=== PATIENT | male | born 1985 | race Caucasian/White ===

== ENCOUNTER 2021-06-11 15:29 | Emergency (ER) | payer MEDICARE, MEDICAID ==
[~2021-06-11] VITALS: Ht 172 cm; Wt 77.0 kg
--- NOTE | 2021-06-11 16:24 | ED GI ---
General Chief Complaint: Catheter/Drain/Tube Problems Stated Complaint: FEEDING TUBE ISSUES Nursing Triage Note: PT ARRIVES TO ER WITH C/O FEEDING TUBE BEING CRACKED FOR 3 WEEKS. PT STATES HE HAS HAD THIS TUBE FOR 5 YEARS AND HAS NEVER HAD IT REPLACED DUE TO BEING IN [place] Source of Information: Patient Exam Limitations: No Limitations History of Present Illness Date Seen by Provider: Jun 11, 2021 Time Seen by Provider: 15:45 Initial Comments This 35-year-old man presents to the emergency room accompanied by a staff member from the [facility] in [place] with concerns about his gastric feeding tube. He states it has been in place for 5 years. He states that it is cracked and was supposed to be replaced 2 years ago. He has been incarcerated and struggled with alcohol dependence and has therefore.had G-tube replaced. He is able to consume some orally but he does use the feeding tube for nutrition and hydration. Allergies and Home Medications Allergies Coded Allergies: No Known Allergies (Verified Allergy, Unknown, 06/11/21) Patient Home Medication List Home Medication List Reviewed: Yes Review of Systems Review of Systems Constitutional: no symptoms reported EENTM: No Symptoms Reported Respiratory: No Symptoms Reported Cardiovascular: No Symptoms Reported Gastrointestinal: See HPI Genitourinary: No Symptoms Reported Musculoskeletal: no symptoms reported Skin: no symptoms reported Psychiatric/Neurological: See HPI Endocrine: No Symptoms Reported Hematologic/Lymphatic: No Symptoms Reported Past Bfmhfhk-Hrqouy-Ykqnmb Hx Patient Social History Tobacco Use?: Yes Tobacco type used: Cigarettes Smoking Status: Current Everyday Smoker Substance use?: No Alcohol Use?: No (Prior heavy daily use) Pt feels they are or have been: No Immunizations Up To Date Influenza Vaccine Up-to-Date: No; Not Current Past Medical History Surgeries: Yes Abdominal (PEG tube) Respiratory: No Cardiac: No Neurological: No Genitourinary: No Gastrointestinal: Yes (Esophageal achalasia) Musculoskeletal: No Endocrine: No HEENT: No Cancer: No Psychosocial: Yes (Alcohol dependence and abuse) Physical Exam Vital Signs Vital Signs - First Documented 06/11/21 15:37 Temp 36.7 Pulse 89 Resp 18 B/P (MAP) 121/93 (102) Pulse Ox 98 Capillary Refill : Less Than 3 Seconds Height/Weight/BMI Height: '" Weight: lbs. oz. 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 Dr. Jc was consulted. He recommended firm traction on the PEG tube until the flange collapses and the PEG tube can be removed. I did apply rather firm traction until patient alerted me to notable pain. At that point Dr. Jc came to the room to assist with the removal. He was able to remove the PEG tube and insert a new 20 Polish PEG tube. Diagnostic Imaging Diagonstic Imaging: Xray Plain Films/CT/US/NM/MRI: abdomen Comments PEG tube placement x-ray reviewed by me and report reviewed. See report below: NAME: CHUCKIE KRISHNAN [facility] REC#: [id number] PT STATUS: REG ER : 1985 PHYSICIAN: HENRY ESPINAL MD ADMIT DATE: 06/11/21/ER Signed Date of Exam:06/11/21 PEG TUBE CHECK Exam: Abdominal radiographs with and without contrast. Date: June 11, 2021. Indication: 35-year-old male, PEG tube positioning evaluation. Comparison: September 27, 2017. Findings: There is contrast administration through the existing gastrostomy tube with contrast opacification of the stomach and extending into the duodenum. There is no identified abnormal extravasation of contrast. There is no identified free intraperitoneal air. There are no abnormally distended gas-filled segments of bowel. There is no identified abnormal radiodensity overlying the expected positions of the kidneys or ureters. Impression: 1. The gastrostomy tube is in the stomach. Dictated by: Dictated on workstation # [id number] Dict: 06/11/21 1756 Trans: 06/11/211805 [facility] [id number] Interpreted by: JAMES GERMAN MD Electronically signed by: JAMSE GERMAN MD 06/11/211805 Departure Impression Primary Impression: Encounter for feeding tube placement Additional Impression: Esophageal achalasia Disposition: 01 HOME, SELF-CARE Condition: Improved Departure-Patient Inst. Decision time for Depature: 18:46 Referrals: MATTHEW JC,LOCAL PHYSICIAN (PCP) Primary Care Physician Patient Instructions: How to Care for Your Gastrostomy Tube Add. Discharge Instructions: Read through the instructions provided. Call Dr. Jc if you have any problems or concerns with your G-tube. Return to the ER if you need urgent evaluation or care or if you have worsening symptoms. All discharge instructions reviewed with patient and/or family. Voiced understanding. Copy Copies To 1: MATTHEW JC JOSHUA T MD Jun 11, 2021 16:24
[2021-06-11] MEDS ORDERED: DIATRIZOATE MEGLUM/SODIUM 37% 120 ML (GASTROGRAFIN) PO ONE (17:45)
--- NOTE | 2021-06-11 18:06 | Diagnostic Imaging Report ---
Exam: Abdominal radiographs with and without contrast. Date: June 11, 2021. Indication: 35-year-old male, PEG tube positioning evaluation. Comparison: September 27, 2017. Findings: There is contrast administration through the existing gastrostomy tube with contrast opacification of the stomach and extending into the duodenum. There is no identified abnormal extravasation of contrast. There is no identified free intraperitoneal air. There are no abnormally distended gas-filled segments of bowel. There is no identified abnormal radiodensity overlying the expected positions of the kidneys or ureters. Impression: 1. The gastrostomy tube is in the stomach. Dictated by: Dictated on workstation # [id number]
[2021-06-11 18:53] VITALS: BP 121/93
--- NOTE | 2021-06-11 21:14 | Consultation - Surgery ---
History of Present Illness History of Present Illness Patient Consulted On(geronimo/time) 06/11/21 17:00 Date Seen by Provider: Jun 11, 2021 Time Seen by Provider: 17:00 History of Present Illness Consult requested by Dr. Helton for malfunction gastrostomy tube. Patient is a 35-year-old male who is in the addiction treatment center in [facility]. Patient states that he has had significant issue with alcohol use and was diagnosed with achalasia. He states that he had underwent a Heller myotomy. This was done in [place]. He states that he did not have great success with this and has even had an esophageal stent as well but patient was still unable to tolerate enough diet and hydration. He states that he had a gastrostomy tube placed 5 years ago to maintain his nutrition and hydration. Patient states that he was instructed to have his tube replaced 2 years ago but was unable to do so and not sure why it has not been done so far. The tube has been broken and it is secured to the best of his ability at this time. He continues to use it. He does not have any significant leaks from it. He is just concerned because of it being cracked and the long time without having it replaced. Patient with no abdominal pain. He has no other complaints at this time. He denies any nausea vomiting fever sweats chills shortness of breath or chest pain. Allergies and Home Medications Allergies Coded Allergies: No Known Allergies (Verified Allergy, Unknown, 06/11/21) Patient Home Medication List Home Medication List Reviewed: Yes Past Qsywwup-Grgaxj-Ngfusj Hx Patient Social History Smoking Status: Current Everyday Smoker Alcohol Use?: No (Prior heavy daily use) Have you traveled recently?: No Surgeries History of Surgeries: Yes Surgeries: Abdominal (PEG tube, Heller myotomy, history of esophageal stent) Respiratory History of Respiratory Disorde: No Cardiovascular History of Cardiac Disorders: No Neurological History of Neurological Disord: No Genitourinary History of Genitourinary Disor: No Gastrointestinal History of Gastrointestinal Di: Yes (Esophageal achalasia) Musculoskeletal History of Musculoskeletal Dis: No Endocrine History of Endocrine Disorders: No HEENT History of HEENT Disorders: No Cancer History of Cancer: No Psychosocial History of Psychiatric Problem: Yes (Alcohol dependence and abuse) Reviewed Nursing Assessment Reviewed/Agree w Nursing PMH: Yes Family Medical History Significant Family History: No Pertinent Family Hx Review of Systems-General Constitutional: No chills, No diaphoresis, No weakness EENTM: No blurred vision, No double vision Respiratory: No cough, No dyspnea on exertion Cardiovascular: No chest pain, No palpitations Gastrointestinal: No abdominal pain, No nausea, No vomiting Genitourinary: No decreased output, No discharge Musculoskeletal: No back pain, No joint pain Skin: No change in color, No change in hair/nails Psychiatric/Neurological: Denies Anxiety, Denies Depressed, Denies Emotional Problems All Other Systems Reviewed Negative Unless Noted: Yes (Negative excepted noted.) Physical Exam-General Problems Physical Exam Vital Signs Vital Signs - First Documented 06/11/21 15:37 Temp 36.7 Pulse 89 Resp 18 B/P (MAP) 121/93 (102) Pulse Ox 98 Capillary Refill : Less Than 3 Seconds General Appearance: WD/WN, no apparent distress HEENT: PERRL/EOMI Neck: non-tender, supple Respiratory: chest non-tender, no respiratory distress, no accessory muscle use Cardiovascular: regular rate, rhythm, no JVD Gastrointestinal: non tender, soft, other (Gastrostomy tube left upper quadrant) Rectal: deferred Back: no CVA tenderness, no vertebral tenderness Extremities: non-tender, no pedal edema Neurologic/Psychiatric: alert, normal mood/affect, oriented x 3 Skin: normal color, warm/dry Lymphatic: no adenopathy Assessment/Plan Assessment/Plan Assessment/Plan Esophageal achalasia Malfunctioning gastrostomy tube History of alcohol dependence Patient is a 35-year-old male with esophageal achalasia he has had a previous Heller myotomy and esophageal stenting. Patient is dependent upon gastrostomy tube for nutrition and hydration. It is currently partially pieced together with zip ties to hold together. He is currently in addiction treatment center in [facility]. We discussed risk and benefits of having the tube replaced which he understands and wishes to have replaced. Patient will have replaced with a KEVIN tube after the tube is been removed and will need radiological PEG tube check. After exchange can be used as normal. Procedure: Removal of gastrostomy tube and placement of KEVIN gastrostomy tube 20 Chinese. Patient was in the supine position. Gentle traction was placed on the gastrostomy tube until the entire tube came out with gentle pressure and the tube came out in his entirety. Once this was performed the 20 Chinese KEVIN gastrostomy tube was then inserted down through the fistula and the balloon was insufflated with 10 mils of saline and then the bolster was then placed to the skin at the level of approximately 4 cm. Patient tolerated procedure well without any complication. PEG tube check was then performed demonstrating contrast into the stomach with the gastrostomy tube in appropriate place. MATTHEW JC DO Jun 11, 2021 21:14
== END 2021-06-11 18:52 | disposition home or self-care (01) ==
LOC: ER 15:31
DX: K22.0 Achalasia of cardia (principal); Z43.1 Encounter for attention to gastrostomy; F17.210 Nicotine dependence, cigarettes, uncomplicated
CPT/HCPCS: 49465

== ENCOUNTER 2021-12-16 19:14 | Emergency (ER) | payer MEDICARE, MEDICAID ==
[~2021-12-16] VITALS: Ht 175 cm; Wt 76.2 kg
[2021-12-16 19:45] VITALS: BP 165/123
[2021-12-16] MEDS ORDERED: NS IV 1000 ML 1,000 ML IV STA ×2 (19:48→20:56)
--- NOTE | 2021-12-16 19:51 | ED Abdominal Pain ---
General Stated Complaint: DRANK TO MUCH WITH FEEDING TUBE Source of Information: Patient Exam Limitations: No Limitations (FREEDOM HURLEY) History of Present Illness Date Seen by Provider: Dec 16, 2021 Time Seen by Provider: 22:43 Initial Comments Patient is a 36-year-old male who presents ED with vomiting and diarrhea. Patient states yesterday evening he drank about 5 tall beers. He states he injected the beer in his feeding tube. Started having immediate generalized pain with vomiting and diarrhea that started this morning when he woke up. Reports some bilateral lower back discomfort. He states his urine is dark. Has not been able to eat or drink. Attempted to drink orally but this was unsuccessful and immediately vomit. Denies of any bloody stools. He reports some mild tremoring. Denies history of withdrawal seizures or feel like he is withdrawing. Patient is concerned that he may be dehydrated. He reports drinking alcohol daily. He states he feels anxious. Denies fever, chills, sore throat, ear pain chest pain, shortness of breath, cough. (FREEDOM HURLEY) Allergies and Home Medications Allergies Coded Allergies: No Known Allergies (Verified Allergy, Unknown, 06/11/21) Patient Home Medication List Home Medication List Reviewed: Yes (FREEDOM HURLEY) Review of Systems Review of Systems Constitutional: No chills, No diaphoresis, No malaise; weakness EENTM: No Blurred Vision, No Double Vision, No Eye Pain Respiratory: Denies Shortness of Air, Denies SOA With Exertion Cardiovascular: Denies Chest Pain, Denies Edema, Denies Irregular Heart Rate Gastrointestinal: Denies Abdomen Distended; Abdominal Pain, Diarrhea, Nausea, Vomiting Genitourinary: Denies Burning, Denies Discharge Musculoskeletal: back pain; No joint pain Skin: No change in color, No change in hair/nails (FREEDOM HURLEY) All Other Systems Reviewed Negative Unless Noted: Yes (FREEDOM HURLEY) Past Qocevso-Akjczs-Vknlip Hx Past Medical History Surgeries: Yes Abdominal Respiratory: No Cardiac: No Neurological: No Genitourinary: No Gastrointestinal: Yes (Esophageal achalasia) Musculoskeletal: No Endocrine: No HEENT: No Cancer: No Psychosocial: Yes (Alcohol dependence and abuse) (FREEDOM HURLEY) Family Medical History No Pertinent Family Hx (FREEDOM HURLEY) Physical Exam Vital Signs Vital Signs - First Documented 12/16/21 19:45 Temp 36.4 Pulse 73 Resp 20 B/P (MAP) 165/123 (137) Pulse Ox 98 (NICA MEDEIROS K DO) Vital Signs Capillary Refill : (FREEDOM HURLEY) Height/Weight/BMI Height: '" Weight: lbs. oz. kg; 26.00 BMI Method: General Appearance: WD/WN, no apparent distress HEENT: PERRL/EOMI, normal ENT inspection, TMs normal, pharynx normal Neck: non-tender, full range of motion, supple Respiratory: chest non-tender, lungs clear, normal breath sounds, no respiratory distress, no accessory muscle use Cardiovascular: regular rate, rhythm, no edema, no gallop, no JVD Gastrointestinal: normal bowel sounds, soft, no organomegaly, other ( generalized abdominal tenderness. 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, no motor/sensory deficits, alert (FREEDOM HURLEY) Progress/Results/Core Measures Results/Orders Lab Results Laboratory Tests Test 12/16/21 19:55 12/16/21 20:45 Range/Units White Blood Count 5.1 4.3-11.0 10^3/uL Red Blood Count 4.93 4.30-5.52 10^6/uL Hemoglobin 14.6 13.3-17.7 g/dL Hematocrit 43 40-54 % Mean Corpuscular Volume 87 80-99 fL Mean Corpuscular Hemoglobin 30 25-34 pg Mean Corpuscular Hemoglobin Concent 34 32-36 g/dL Red Cell Distribution Width 14.4 10.0-14.5 % Platelet Count 156 130-400 10^3/uL Mean Platelet Volume 9.0 9.0-12.2 fL Immature Granulocyte % (Auto) 0 % Neutrophils (%) (Auto) 60 42-75 % Lymphocytes (%) (Auto) 25 12-44 % Monocytes (%) (Auto) 12 0-12 % Eosinophils (%) (Auto) 2 0-10 % Basophils (%) (Auto) 2 0-10 % Neutrophils # (Auto) 3.1 1.8-7.8 10^3/uL Lymphocytes # (Auto) 1.3 1.0-4.0 10^3/uL Monocytes # (Auto) 0.6 0.0-1.0 10^3/uL Eosinophils # (Auto) 0.1 0.0-0.3 10^3/uL Basophils # (Auto) 0.1 0.0-0.1 10^3/uL Immature Granulocyte # (Auto) 0.0 0.0-0.1 10^3/uL Sodium Level 138 135-145 MMOL/L Potassium Level 4.4 3.6-5.0 MMOL/L Chloride Level 96 L 98-107 MMOL/L Carbon Dioxide Level 20 L 21-32 MMOL/L Anion Gap 22 H 5-14 MMOL/L Blood Urea Nitrogen 9 7-18 MG/DL Creatinine 0.82 0.60-1.30 MG/DL Estimat Glomerular Filtration Rate 117 BUN/Creatinine Ratio 11 Glucose Level 66 L 70-105 MG/DL Calcium Level 9.6 8.5-10.1 MG/DL Corrected Calcium 8.5-10.1 MG/DL Magnesium Level 2.3 1.6-2.4 MG/DL Total Bilirubin 1.4 H 0.1-1.0 MG/DL Aspartate Amino Transf (AST/SGOT) 216 H 5-34 U/L Alanine Aminotransferase (ALT/SGPT) 161 H 0-55 U/L Alkaline Phosphatase 107 40-136 U/L Troponin I < 0.028 <0.028 NG/ML Total Protein 7.4 6.4-8.2 GM/DL Albumin 4.6 H 3.2-4.5 GM/DL Lipase 43 8-78 U/L Serum Alcohol 37 H <10 MG/DL Urine Color YELLOW Urine Clarity CLEAR Urine pH 6.0 5-9 Urine Specific Sterling >=1.030 1.016-1.022 Urine Protein 1+ H NEGATIVE Urine Glucose (UA) NEGATIVE NEGATIVE Urine Ketones 2+ H NEGATIVE Urine Nitrite NEGATIVE NEGATIVE Urine Bilirubin 1+ H NEGATIVE Urine Urobilinogen 1.0 < = 1.0 MG/DL Urine Leukocyte Esterase NEGATIVE NEGATIVE Urine RBC (Auto) NEGATIVE NEGATIVE Urine RBC NONE /HPF Urine WBC 0-2 /HPF Urine Squamous Epithelial Cells RARE /HPF Urine Renal Epithelial Cells NONE /HPF Urine Crystals NONE /LPF Urine Bacteria NEGATIVE /HPF Urine Casts NONE /LPF Urine Mucus LARGE H /LPF Urine Culture Indicated NO (NICA MEDEIROS DO) Medications Given in ED Current Medications Medications Dose Ordered Sig/Amando Route Start Time Stop Time Status Last Admin Dose Admin Iohexol 100 ml ONCE ONCE IV 12/16/21 20:00 12/16/21 20:01 DC 12/16/21 21:05 99 ML Lorazepam 1 mg ONCE ONCE IVP 12/16/21 20:00 12/16/21 20:01 DC 12/16/21 20:08 1 MG Ondansetron HCl 4 mg ONCE ONCE IVP 12/16/21 20:00 12/16/21 20:01 DC 12/16/21 20:09 4 MG Sodium Chloride 100 ml ONCE ONCE IV 12/16/21 20:00 12/16/21 20:01 DC 12/16/21 21:05 80 ML (NICA MEDEIROS DO) Vital Signs/I&O 12/16/21 19:45 Temp 36.4 Pulse 73 Resp 20 B/P (MAP) 165/123 (137) Pulse Ox 98 12/17/21 00:00 Intake Total 1000 ml Balance 1000 ml (NICA MEDEIROS DO) Departure Communication (PCP) Patient urinalysis positive for ketones and bilirubin. Concerning for dehydration. Alcohol level 37. Normal white blood count kidney function. normal sodium and potassium. Elevated liver enzymes. He reports chronic alcohol consumption's. patient drinks daily. Reports at least 5 tall alcohol beverages daily. Denies feeling like he is withdrawing. He feels like he is dehydrated. Bilateral flank discomfort. Vital signs stable. Was started on a liter of fluid and given nausea medication. Patient was given a second liter of fluid. Started having a appetite here. Attempted Ensure supplement successfully without vomiting or any diarrhea. Patient was given Ativan. Has some mild tremoring but states this feels more like anxiety. Chest x-ray negative for acute abnormality. Due to the pain and location CT scan of the abdomen pelvis was ordered. CT abdomen and pelvis showed long segment wall thickening of the sigmoid colon, transverse colon and small bowel compatible with nonspecific colitis and enteritis. Potentially viral. No bloody stools. Denies eating anything differently besides the alcohol compared to his significant other. No history of inflammatory bowel disease. Pain improved significantly. Patient feeling much better at this time. Will discharge with outpatient follow-up. Discussed limiting alcohol. Avoid excessive eating. Small portions. If worsening symptoms return back to ED. (FREEDOM HURLEY) Impression Primary Impression: Nausea and vomiting Additional Impression: Colitis Disposition: HOME, SELF-CARE Condition: Stable Departure-Patient Inst. Decision time for Depature: 22:34 (FREEDOM HURLEY) Referrals: ANTHONY JUNG DO (PCP/Family) Primary Care Physician Patient Instructions: Colitis Work/School Note: Work Release Form Date Seen in the Emergency Department: Dec 16, 2021 Return to Work: Dec 18, 2021 ATTENDING PHYSICIAN NOTE: I WAS PHYSICALLY PRESENT ER PHYSICIAN, BUT I WAS NOT INVOLVED IN ANY DECISION MAKING OR ANY CARE OF THIS PATIENT. (NICA MEDEIROS DO) FREEDOM HURLEY Dec 16, 2021 19:51 NICA MEDEIROS DO Dec 17, 2021 02:27
[2021-12-16] MEDS ORDERED: NS 100 ML (IVPB) BAG IV ONE (20:00)
[2021-12-16] MEDS ORDERED: ONDANSETRON 4 MG/2 ML (SDV) Z0FRAN IVP ONE (20:00)
[2021-12-16] MEDS ORDERED: IOHEXOL 350 MG/ML 100 ML (OMNIPAQUE 350) VIAL IV ONE (20:00)
[2021-12-16] MEDS ORDERED: LORazepam INJ 2 MG/ML (ATIVAN) VIAL IVP ONE (20:00)
[2021-12-16 20:06] LABS: BASOPHILS # (AUTO) 0.1 10^3/uL (0.0-0.1); BASOPHILS % (AUTO) 2 % (0-10); EOSINOPHILS # (AUTO) 0.1 10^3/uL (0.0-0.3); EOSINOPHILS % (AUTO) 2 % (0-10); HEMATOCRIT 43 % (40-54); HEMOGLOBIN 14.6 g/dL (13.3-17.7); LYMPHOCYTES # (AUTO) 1.3 10^3/uL (1.0-4.0); LYMPHOCYTES % (AUTO) 25 % (12-44); MEAN CORPUSCULAR HEMOGLOBIN 30 pg (25-34); MEAN CORPUSCULAR HGB CONC 34 g/dL (32-36); MEAN CORPUSCULAR VOLUME 87 fL (80-99); MONOCYTES # (AUTO) 0.6 10^3/uL (0.0-1.0); MONOCYTES % (AUTO) 12 % (0-12); NEUTROPHILS # (AUTO) 3.1 10^3/uL (1.8-7.8); NEUTROPHILS % (AUTO) 60 % (42-75); PLATELET COUNT 156 10^3/uL (130-400); WHITE BLOOD COUNT 5.1 10^3/uL (4.3-11.0)
--- NOTE | 2021-12-16 20:09 | Diagnostic Imaging Report ---
EXAMINATION: Chest radiograph, portable AP view. DATE: 12/16/2021 8:02 PM INDICATION: 36-year-old male, chest pain. COMPARISON: September 25, 2017. FINDINGS: Heart size and mediastinal contours are unchanged. There is no identified pneumothorax. There is no large pleural effusion. There is no identified focal airspace consolidation. IMPRESSION: No identified acute cardiopulmonary abnormality. Dictated by: Dictated on workstation # [id number]
[2021-12-16 20:17] LABS: ALBUMIN 4.6 GM/DL (3.2-4.5); CHLORIDE 96 MMOL/L (98-107); POTASSIUM 4.4 MMOL/L (3.6-5.0); SODIUM 138 MMOL/L (135-145)
[2021-12-16 20:18] LABS: CALCIUM 9.6 MG/DL (8.5-10.1)
[2021-12-16 20:20] LABS: GLUCOSE 66 MG/DL (70-105); TOTAL PROTEIN 7.4 GM/DL (6.4-8.2)
[2021-12-16 20:21] LABS: CARBON DIOXIDE 20 MMOL/L (21-32)
[2021-12-16 20:22] LABS: BILIRUBIN,TOTAL 1.4 MG/DL (0.1-1.0)
[2021-12-16 20:23] LABS: ALKALINE PHOSPHATASE 107 U/L (40-136); CREATININE SERUM 0.82 MG/DL (0.60-1.30); GFR ESTIMATED 117
[2021-12-16 20:24] LABS: BUN/CREATININE RATIO 11
[2021-12-16 20:26] LABS: ALANINE AMINOTRANSFERASE 161 U/L (0-55)
[2021-12-16 20:27] LABS: MAGNESIUM 2.3 MG/DL (1.6-2.4)
[2021-12-16 20:28] LABS: LIPASE 43 U/L (8-78)
[2021-12-16 20:51] LABS: BILIRUBIN,URINE 1+ (NEGATIVE); CLARITY,URINE CLEAR; COLOR,URINE YELLOW; GLUCOSE, URINE (UA) NEGATIVE (NEGATIVE); KETONES,URINE 2+ (NEGATIVE); LEUKOCYTE ESTERASE ,URINE NEGATIVE (NEGATIVE); NITRITE,URINE NEGATIVE (NEGATIVE); PROTEIN,URINE 1+ (NEGATIVE)
[2021-12-16] MEDS ORDERED: NS IV 1000 ML 1,000 ML ONE (20:56)
[2021-12-16 20:58] LABS: BACTERIA,URINE NEGATIVE /HPF; SQUAMOUS EPITHELIAL CELL,UR RARE /HPF; WBC,URINE 0-2 /HPF
--- NOTE | 2021-12-16 21:23 | Diagnostic Imaging Report ---
PROCEDURE: CT abdomen and pelvis with contrast. TECHNIQUE: Multiple contiguous axial images were obtained through the abdomen and pelvis after administration of intravenous contrast. Auto Exposure Controls were utilized during the CT exam to meet ALARA standards for radiation dose reduction. All CT scans use one or more of the following dose optimizing techniques: automated exposure control, MA and/or KvP adjustment based on patient size and exam type or iterative reconstruction. DATE: December 16, 2021. COMPARISON: Abdominal radiographs September 27, 2017. INDICATION: 36-year-old male, nausea and vomiting. FINDINGS: The visualized portions of the lung bases are clear. The heart is not enlarged. There is no pericardial effusion. There is fluid in the esophagus which may reflect esophagitis and/or gastroesophageal reflux. There is no CT apparent wall thickening of the esophagus. There is prominent diffuse fatty infiltration of the liver. The liver is unremarkable in size and contour. There is no identified liver lesion. The main, right, and left portal veins are patent. The gallbladder is grossly unremarkable. There is no intrahepatic or extrahepatic bile duct dilation. The main pancreatic duct is not abnormally dilated. Unremarkable appearance of the pancreatic parenchyma. The spleen is normal in size. The adrenal glands are unremarkable. Unremarkable appearance of the renal parenchyma. The urinary collecting systems are not distended. There is no identified renal or ureteral stone. The urinary bladder is unremarkable. There is mild long segment wall thickening of the sigmoid colon is as well as of the transverse colon. The appendix is unremarkable. There are also long segment areas of abnormal small bowel wall thickening. There is a gastrostomy tube in the stomach. There is no free intraperitoneal air. There is no drainable fluid collection. There is no free fluid in the abdomen or pelvis. There is fatty wall thickening of the right colon compatible with chronic colitis. There are mild atherosclerotic calcifications. There is no identified abnormally enlarged lymph node in the abdomen or pelvis meeting CT size criteria for adenopathy. There is a sclerotic lesion in the right femoral neck likely reflecting benign bone island. There is no identified acute bony abnormality. IMPRESSION: CT ABDOMEN AND PELVIS. 1. Long segment wall thickening of the sigmoid colon, transverse colon, and small bowel compatible with a nonspecific colitis and enteritis. 2. There is fatty wall thickening in the right colon likely reflecting chronic colitis. 3. Prominent diffuse fatty infiltration of the liver. 4. Fluid in the distal esophagus which can be seen with esophagitis or gastroesophageal reflux. There is no CT apparent wall thickening of the esophagus. Dictated by: Dictated on workstation # [id number]
== END 2021-12-16 22:54 | disposition home or self-care (01) ==
LOC: EDUNIT# 19:14 → ER 19:20
DX: F10.20 Alcohol dependence, uncomplicated (principal); K52.9 Noninfective gastroenteritis and colitis, unspecified; R82.998 Other abnormal findings in urine; R94.5 Abnormal results of liver function studies; Y90.1 Blood alcohol level of 20-39 mg/100 ml
CPT/HCPCS: 71045; 74177; 80053; 81000; 83690; 83735; 84484; 85025; 99284; G0480; 36415; 80320

== ENCOUNTER 2022-01-30 10:16 | Emergency (ER) | payer MEDICARE, MEDICAID ==
[~2022-01-30] VITALS: Ht 175.3 cm; Wt 81.2 kg
--- NOTE | 2022-01-30 11:15 | ED General ---
General Chief Complaint: Catheter/Drain/Tube Problems Stated Complaint: WANTING FEEDING TUBE SWAPPED OUT Nursing Triage Note: PT AMBULATE TO ROOM FT3 WITH C/O WANTING FEEDING TUBE REPLACED. PT DENIES PAIN OR ANY ISSUES WITH FEEDING TUBE FUNCTION. PT STATES THAT "IT'S JUST GETTING A LITTLE WEAR AND TEAR SO I WANT A NEW ONE." PT STATES THAT HE DOES NOT HAVE A PCP AND COME TO THE ED WHEN HE WANTS HIS FEEDING TUBE REPLACED. PT DENIES ANY C/O OF ANY OTHER ISSUES. Source of Information: Patient Exam Limitations: No Limitations History of Present Illness Date Seen by Provider: Jan 30, 2022 Time Seen by Provider: 11:12 Initial Comments Patient is a 36-year-old male who presents ED wanting feeding tube replaced. Patient denies of any pain or obvious source of infection around the feeding tube. Patient states the tabs are wearing out and he noticed some bleeding around the feeding tube site about 1 week ago that bleed 3 or 4 days. That has improved. Patient uses his feeding tube for alcohol. He states he has been able to use feedings through the tube. Denies fever, chills, abdominal pain, headache, dizziness, nausea, vomiting, diarrhea Allergies and Home Medications Allergies Coded Allergies: No Known Allergies (Verified Allergy, Unknown, 06/11/21) Patient Home Medication List Home Medication List Reviewed: Yes Review of Systems Review of Systems Constitutional: No chills, No diaphoresis, No malaise, No weakness EENTM: No ear pain, No blurred vision, No double vision, No mouth pain Respiratory: No cough, No short of breath, No wheezing Cardiovascular: No chest pain, No edema Gastrointestinal: No abdominal pain, No diarrhea, No nausea, No vomiting Genitourinary: No decreased output Musculoskeletal: No back pain, No joint pain Skin: No change in color, No change in hair/nails All Other Systems Reviewed Negative Unless Noted: Yes Past Trvjqei-Pdqnoe-Mtjouc Hx Patient Social History Tobacco Use?: Yes Tobacco type used: Cigarettes Smoking Status: Current Everyday Smoker Smokeless Tobacco Frequency: Never a User Use of E-Cig and/or Vaping dev: No Use of E-Cig and/or Vaping Shon: Never a User Substance use?: No Alcohol Use?: Yes Alcohol Frequency: Couple times a week Pt feels they are or have been: No Past Medical History Surgeries: Yes Abdominal Respiratory: No Cardiac: No Neurological: No Genitourinary: No Gastrointestinal: Yes (Esophageal achalasia) Musculoskeletal: No Endocrine: No HEENT: No Cancer: No Psychosocial: Yes (Alcohol dependence and abuse) Family Medical History No Pertinent Family Hx Physical Exam Vital Signs Vital Signs - First Documented 01/30/22 01/30/22 10:22 11:35 Temp 35.8 Pulse 74 Resp 15 B/P (MAP) 117/82 (94) Pulse Ox 100 O2 Delivery Room Air Capillary Refill : Less Than 3 Seconds Height, Weight, BMI Height: '" Weight: lbs. oz. kg; 26.00 BMI Method: General Appearance: No Apparent Distress, WD/WN Eyes: Bilateral Eye Normal Inspection, Bilateral Eye PERRL, Bilateral Eye EOMI HEENT: PERRL/EOMI, TMs Normal, Normal ENT Inspection, Pharynx Normal Neck: Full Range of Motion, Normal Inspection, Non Tender, Supple Respiratory: Chest Non Tender, Lungs Clear, Normal Breath Sounds, No Accessory Muscle Use, No Respiratory Distress Cardiovascular: Regular Rate, Rhythm, No Edema, No Gallop, No JVD Gastrointestinal: Normal Bowel Sounds, No Organomegaly, No Pulsatile Mass, Non Tender, Soft, Other (Feeding tube in place in the left upper quadrant) Back: Normal Inspection, No CVA Tenderness Extremity: Normal Capillary Refill, Normal Inspection, Normal Range of Motion, Non Tender, No Calf Tenderness Neurologic/Psychiatric: Alert, Oriented x3, No Motor/Sensory Deficits, Normal Mood/Affect, director cardiovascular II-XII Norm as Tested Skin: Normal Color, Warm/Dry Progress/Results/Core Measures Suspected Sepsis SIRS Temperature: Pulse: 74 Respiratory Rate: 15 Blood Pressure 117 /82 Mean: 94 Results/Orders Vital Signs/I&O 01/30/22 01/30/22 10:22 11:35 Temp 35.8 Pulse 74 89 Resp 15 19 B/P (MAP) 117/82 (94) 122/68 Pulse Ox 100 O2 Delivery Room Air Room Air Capillary Refill : Less Than 3 Seconds Blood Pressure Mean: 94 Departure Communication (PCP) Feeding tube appears to be working appropriately. Mild [id number]. No evidence of surrounding cellulitis near the stoma site. Patient has been using his feeding tube without difficulties. Had some mild bleeding around the site but that healed up. Soft abdomen. Vital signs stable. Outpatient follow-up with GI for further evaluations and tube placement as needed. If any malfunctions to return back to ED for further evaluation Impression Primary Impression: Encounter for feeding tube placement Disposition: HOME, SELF-CARE Condition: Stable Departure-Patient Inst. Decision time for Depature: 11:14 Referrals: AGBRIELA SCOTT MD, JACQUELINE S DO (PCP/Family) Primary Care Physician Add. Discharge Instructions: Recommend following up with GI for further evaluation for feeding tube All discharge instructions reviewed with patient and/or family. Voiced understanding. FREEDOM HURLEY Jan 30, 2022 11:15
[2022-01-30 11:35] VITALS: BP 122/68
== END 2022-01-30 11:35 | disposition home or self-care (01) ==
LOC: EDUNIT# 10:16 → ER 10:18
DX: Z46.59 Encounter for fitting and adjustment of other gastrointestinal appliance and device (principal); F17.210 Nicotine dependence, cigarettes, uncomplicated
CPT/HCPCS: 99281

== ENCOUNTER 2022-03-07 11:33 | Emergency (ER) | payer MEDICARE, MEDICAID ==
[~2022-03-07] VITALS: Ht 175.2 cm; Wt 82.0 kg
--- NOTE | 2022-03-07 12:11 | ED GI ---
General Chief Complaint: Catheter/Drain/Tube Problems Stated Complaint: FEEDING TUBE AREA PAINFUL Nursing Triage Note: HAS BEEN HAVING INCREASED PAIN OVER THE LAST 3 DAYS AROUND THE INSIDE OF THE HIS FEEDING TUBE. Source of Information: Patient Exam Limitations: No Limitations History of Present Illness Date Seen by Provider: Mar 07, 2022 Time Seen by Provider: 12:08 Initial Comments Patient is a 36-year-old male with a history of esophageal achalasia, alcohol abuse who presents the ED pain inside his abdomen. This is located around the feeding tube. Started 3 days ago. Reports a sharp pain feels like it is pulling. He noticed some mild bleeding in the morning when he wakes up. Denies of any purulent drainage. He states he has been attempting to eat. Last use of the feeding tube was this morning. Denies of any vomiting, diarrhea, fever, headache, chills, chest pain, shortness of breath. Patient states last time he had his feeding tube replaced was in May. He is unsure who placed the feeding tube. Patient appears in no acute distress. Allergies and Home Medications Allergies Coded Allergies: No Known Allergies (Verified Allergy, Unknown, 06/11/21) Patient Home Medication List Home Medication List Reviewed: Yes Review of Systems Review of Systems Constitutional: No chills, No diaphoresis, No malaise EENTM: No Blurred Vision, No Double Vision Respiratory: Denies Cough, Denies Orthopnea Cardiovascular: Denies Chest Pain Gastrointestinal: Abdominal Pain; Denies Diarrhea, Denies Nausea, Denies Vomiting Genitourinary: Denies Burning, Denies Discharge, Denies Frequency, Denies Flank Pain Musculoskeletal: No back pain, No joint pain Skin: No change in color, No change in hair/nails All Other Systems Reviewed Negative Unless Noted: Yes Past Spbwgxb-Jlboxf-Pgqzje Hx Patient Social History Tobacco Use?: Yes Tobacco type used: Cigarettes Use of E-Cig and/or Vaping dev: No Substance use?: No Alcohol Use?: No Immunizations Up To Date Influenza Vaccine Up-to-Date: No; Not Current First/Initial COVID19 Vaccinat: declined Past Medical History Surgery/Hospitalization HX: FEEDING TUBE "FOR 6.5 YEARS" POST ALCOHOLISM, INSOMNIA Surgeries: Yes Abdominal Respiratory: No Cardiac: No Neurological: No Genitourinary: No Gastrointestinal: Yes (Esophageal achalasia) Musculoskeletal: No Endocrine: No HEENT: No Cancer: No Psychosocial: Yes (Alcohol dependence and abuse) Family Medical History No Pertinent Family Hx Physical Exam Vital Signs Vital Signs - First Documented 03/07/22 11:35 Temp 36.7 Pulse 94 Resp 16 B/P (MAP) 128/84 (99) Pulse Ox 98 O2 Delivery Room Air Capillary Refill : Less Than 3 Seconds Height/Weight/BMI Height: '" Weight: lbs. oz. kg; 26.00 BMI Method: General Appearance: WD/WN, no apparent distress HEENT: PERRL/EOMI, normal ENT inspection, TMs normal, pharynx normal Neck: non-tender, full range of motion, supple, normal inspection Respiratory: chest non-tender, lungs clear, normal breath sounds, no respiratory distress, no accessory muscle use Cardiovascular: regular rate, rhythm, no edema, no gallop, no JVD Gastrointestinal: normal bowel sounds, soft, no organomegaly, tenderness (Tenderness to the right lateral feeding tube. No purulent drainage from the ostomy. No surrounding redness, excoriation) Extremities: normal range of motion, non-tender, normal inspection, no pedal edema Back: normal inspection, no CVA tenderness, no vertebral tenderness Neurologic/Psychiatric: hospital plan administrator II-XII nml as tested, no motor/sensory deficits, alert, normal mood/affect, oriented x 3 Skin: normal color, warm/dry Progress/Results/Core Measures Results/Orders Lab Results Laboratory Tests Test 03/07/22 12:17 Range/Units White Blood Count 10.0 4.3-11.0 10^3/uL Red Blood Count 5.02 4.30-5.52 10^6/uL Hemoglobin 15.1 13.3-17.7 g/dL Hematocrit 45 40-54 % Mean Corpuscular Volume 90 80-99 fL Mean Corpuscular Hemoglobin 30 25-34 pg Mean Corpuscular Hemoglobin Concent 33 32-36 g/dL Red Cell Distribution Width 13.8 10.0-14.5 % Platelet Count 336 130-400 10^3/uL Mean Platelet Volume 9.5 9.0-12.2 fL Immature Granulocyte % (Auto) 0 % Neutrophils (%) (Auto) 71 42-75 % Lymphocytes (%) (Auto) 18 12-44 % Monocytes (%) (Auto) 8 0-12 % Eosinophils (%) (Auto) 2 0-10 % Basophils (%) (Auto) 1 0-10 % Neutrophils # (Auto) 7.1 1.8-7.8 10^3/uL Lymphocytes # (Auto) 1.8 1.0-4.0 10^3/uL Monocytes # (Auto) 0.8 0.0-1.0 10^3/uL Eosinophils # (Auto) 0.2 0.0-0.3 10^3/uL Basophils # (Auto) 0.1 0.0-0.1 10^3/uL Immature Granulocyte # (Auto) 0.0 0.0-0.1 10^3/uL Sodium Level 139 135-145 MMOL/L Potassium Level 3.9 3.6-5.0 MMOL/L Chloride Level 107 98-107 MMOL/L Carbon Dioxide Level 20 L 21-32 MMOL/L Anion Gap 12 5-14 MMOL/L Blood Urea Nitrogen 10 7-18 MG/DL Creatinine 0.79 0.60-1.30 MG/DL Estimat Glomerular Filtration Rate 118 BUN/Creatinine Ratio 13 Glucose Level 89 70-105 MG/DL Calcium Level 9.5 8.5-10.1 MG/DL Corrected Calcium 9.3 8.5-10.1 MG/DL Total Bilirubin 0.4 0.1-1.0 MG/DL Aspartate Amino Transf (AST/SGOT) 19 5-34 U/L Alanine Aminotransferase (ALT/SGPT) 17 0-55 U/L Alkaline Phosphatase 69 40-136 U/L Total Protein 7.0 6.4-8.2 GM/DL Albumin 4.3 3.2-4.5 GM/DL Lipase 28 8-78 U/L Serum Alcohol < 10 <10 MG/DL My Orders Orders - FREEDOM HURLEY Cbc With Automated Diff (03/07/22 12:06) Comprehensive Metabolic Panel (03/07/22 12:06) Lipase (03/07/22 12:06) Alcohol (03/07/22 12:09) Peg Tube Check (03/07/22 12:06) Diatrizoate Meglum/Sodium 37% (Gastrogra (03/07/22 12:30) Medications Given in ED Current Medications Medications Dose Ordered Sig/Amando Route Start Time Stop Time Status Last Admin Dose Admin Diatrizoate Meglum/ Diatrizoate Sod 120 ml ONCE ONCE NG 03/07/22 12:30 03/07/22 12:32 DC 03/07/22 12:35 30 ML Vital Signs/I&O 03/07/22 03/07/22 11:35 13:26 Temp 36.7 Pulse 94 61 Resp 16 18 B/P (MAP) 128/84 (99) 126/88 Pulse Ox 98 98 O2 Delivery Room Air Room Air Blood Pressure Mean: 99 Departure Communication (PCP) Patient presents ED with pain around his feeding tube. On exam no purulent drainage surrounding redness or swelling. No evidence of skin excoriation. Lab work was otherwise unremarkable. contrast was injected into the feeding tube and appears to be in its correct anatomical position. No extravasation. Discussed with patient could be just irritation from the feeding tube. Feeding tube is working appropriately. He has had a feeding tube since May. Since feeding tube is working recommend continue with feedings as he tolerated feeding this morning. Denies of any current alcohol use. Discussed trying some Pepto- Bismol for upset stomach. Appears to be located to his stomach in the epigastric region. Normal lipase. Normal white blood count, kidney function liver function. No vomiting or diarrhea.. Patient does not appear in acute distress. If any worsening symptoms return back to ED for further evaluation Impression Primary Impression: Abdominal pain Disposition: 01 HOME, SELF-CARE Condition: Stable Departure-Patient Inst. Decision time for Depature: 13:20 Referrals: GABRIELA SCOTT MD, JACQUELINE S DO (PCP/Family) Primary Care Physician Patient Instructions: Abdominal Pain, Adult ED FREEDOM HURLEY Mar 07, 2022 12:11
[2022-03-07 12:26] LABS: BASOPHILS # (AUTO) 0.1 10^3/uL (0.0-0.1); BASOPHILS % (AUTO) 1 % (0-10); EOSINOPHILS # (AUTO) 0.2 10^3/uL (0.0-0.3); EOSINOPHILS % (AUTO) 2 % (0-10); HEMATOCRIT 45 % (40-54); HEMOGLOBIN 15.1 g/dL (13.3-17.7); LYMPHOCYTES # (AUTO) 1.8 10^3/uL (1.0-4.0); LYMPHOCYTES % (AUTO) 18 % (12-44); MEAN CORPUSCULAR HEMOGLOBIN 30 pg (25-34); MEAN CORPUSCULAR HGB CONC 33 g/dL (32-36); MEAN CORPUSCULAR VOLUME 90 fL (80-99); MEAN PLATELET VOLUME 9.5 fL (9.0-12.2); MONOCYTES # (AUTO) 0.8 10^3/uL (0.0-1.0); MONOCYTES % (AUTO) 8 % (0-12); NEUTROPHILS # (AUTO) 7.1 10^3/uL (1.8-7.8); NEUTROPHILS % (AUTO) 71 % (42-75); PLATELET COUNT 336 10^3/uL (130-400)
[2022-03-07] MEDS ORDERED: DIATRIZOATE MEGLUM/SODIUM 37% 120 ML (GASTROGRAFIN) NG ONE (12:30)
[2022-03-07 12:44] LABS: ALBUMIN 4.3 GM/DL (3.2-4.5); CHLORIDE 107 MMOL/L (98-107); POTASSIUM 3.9 MMOL/L (3.6-5.0); SODIUM 139 MMOL/L (135-145)
[2022-03-07 12:45] LABS: CALCIUM 9.5 MG/DL (8.5-10.1)
[2022-03-07 12:46] LABS: GLUCOSE 89 MG/DL (70-105)
[2022-03-07 12:47] LABS: CARBON DIOXIDE 20 MMOL/L (21-32)
[2022-03-07 12:48] LABS: BILIRUBIN,TOTAL 0.4 MG/DL (0.1-1.0)
[2022-03-07 12:50] LABS: ALKALINE PHOSPHATASE 69 U/L (40-136); CREATININE SERUM 0.79 MG/DL (0.60-1.30); GFR ESTIMATED 118
[2022-03-07 12:51] LABS: BUN/CREATININE RATIO 13
[2022-03-07 12:53] LABS: ALANINE AMINOTRANSFERASE 17 U/L (0-55); LIPASE 28 U/L (8-78)
--- NOTE | 2022-03-07 13:08 | Diagnostic Imaging Report ---
INDICATION: Abdominal pain Abdominal film obtained after contrast was injected through the indwelling PEG tube. The PEG tube tip appears within the gastric body, with no contrast extravasation. Bowel gas pattern is unremarkable. IMPRESSION: G tube tip in gastric body, with no contrast extravasation. Bowel gas pattern is unremarkable. Dictated by: Dictated on workstation # [id number]
[2022-03-07 13:26] VITALS: BP 126/88
== END 2022-03-07 13:26 | disposition home or self-care (01) ==
LOC: EDUNIT# 11:33 → ER 11:35
DX: K94.29 Other complications of gastrostomy (principal); F17.210 Nicotine dependence, cigarettes, uncomplicated; Z28.310 Unvaccinated for COVID-19
CPT/HCPCS: 49465; 80053; 83690; 85025; 99283; G0480; 36415; 80320

== ENCOUNTER 2022-03-18 11:53 | Emergency (ER) | payer MEDICARE, MEDICAID ==
[~2022-03-18] VITALS: Ht 175 cm; Wt 82.0 kg
--- NOTE | 2022-03-18 12:12 | ED GI ---
General Chief Complaint: Catheter/Drain/Tube Problems Stated Complaint: FEEING TUBE FELL OUT Source of Information: Patient Exam Limitations: No Limitations History of Present Illness Date Seen by Provider: Mar 18, 2022 Time Seen by Provider: 12:07 Initial Comments Patient is a 36-year-old male who presents to the ED with feeding tube malfunction. Patient states that his feeding tube fell out today while at work. He reports some pain around the feeding tube site over the past few weeks. Reports some mild drainage around the feeding tube after feedings. Denies of any purulent drainage, redness or swelling. No fever. Patient denies any chest pain, shortness of breath, nausea vomiting, diarrhea. Requesting replacement Allergies and Home Medications Allergies Coded Allergies: No Known Allergies (Verified Allergy, Unknown, 06/11/21) Patient Home Medication List Home Medication List Reviewed: Yes Review of Systems Review of Systems Constitutional: No chills, No diaphoresis, No malaise, No weakness EENTM: No Double Vision, No Eye Pain, No Ear Pain, No Mouth Pain, No Mouth Swelling Respiratory: Denies Cough, Denies Orthopnea Cardiovascular: Denies Chest Pain, Denies Edema Gastrointestinal: Denies Abdominal Pain, Denies Diarrhea, Denies Nausea; Other (Feeding tube function) Genitourinary: Denies Discharge Musculoskeletal: back pain, joint pain Skin: change in color, change in hair/nails Psychiatric/Neurological: Denies Anxiety, Denies Depressed All Other Systems Reviewed Negative Unless Noted: Yes Past Qcdvsxe-Lmlues-Zonksv Hx Immunizations Up To Date First/Initial COVID19 Vaccinat: declined Past Medical History Surgery/Hospitalization HX: FEEDING TUBE "FOR 6.5 YEARS" POST ALCOHOLISM, INSOMNIA Surgeries: Yes Abdominal Respiratory: No Cardiac: No Neurological: No Genitourinary: No Gastrointestinal: Yes (Esophageal achalasia) Musculoskeletal: No Endocrine: No HEENT: No Cancer: No Psychosocial: Yes (Alcohol dependence and abuse) Family Medical History No Pertinent Family Hx Physical Exam Vital Signs Vital Signs - First Documented 03/18/22 11:59 Temp 36.2 Pulse 81 Resp 15 B/P (MAP) 127/82 (97) Pulse Ox 97 O2 Delivery Room Air Capillary Refill : Height/Weight/BMI Height: '" Weight: lbs. oz. kg; 26.00 BMI Method: General Appearance: WD/WN, no apparent distress HEENT: PERRL/EOMI, normal ENT inspection, TMs normal, pharynx normal Neck: non-tender, full range of motion, supple Respiratory: chest non-tender, lungs clear, normal breath sounds Cardiovascular: regular rate, rhythm, no edema, no gallop, no JVD Gastrointestinal: normal bowel sounds, non tender, soft, no organomegaly, other (Stoma patent. No surrounding redness or swelling. No purulent drainage) Extremities: normal range of motion, non-tender, normal inspection, no pedal edema, no calf tenderness Neurologic/Psychiatric: word processor II-XII nml as tested, no motor/sensory deficits, alert, normal mood/affect, oriented x 3 Skin: normal color, warm/dry Progress/Results/Core Measures Results/Orders My Orders Orders - FREEDOM HURLEY Peg Tube Check (03/18/22 12:17) Diatrizoate Meglum/Sodium 37% (Gastrogra (03/18/22 13:15) Medications Given in ED Current Medications Medications Dose Ordered Sig/Amando Route Start Time Stop Time Status Last Admin Dose Admin Diatrizoate Meglum/ Diatrizoate Sod 120 ml ONCE ONCE NG 03/18/22 13:15 03/18/22 13:16 DC 03/18/22 13:12 30 ML Vital Signs/I&O 03/18/22 03/18/22 11:59 13:40 Temp 36.2 36.2 Pulse 81 81 Resp 15 15 B/P (MAP) 127/82 (97) 127/82 Pulse Ox 97 97 O2 Delivery Room Air Room Air Departure Communication (PCP) Patient's PEG tube fell out. Replaced a 20 [place] PEG tube here without any difficulties. Successful placement with x-ray and contrast. No evidence suggesting infection. Recommend outpatient follow-up for further evaluation. He states he has noticed some content around the tube after feedings. This may be resulting in irritation. Hopefully with replacement will allow this area to heal and improvement of symptoms. Discussed care around the PEG tube to prevent irritation. No evidence of cellulitis at this time. No fluctuant mass. No purulent drainage. Afebrile with soft abdomen without any tenderness. Impression Primary Impression: PEG tube malfunction Disposition: HOME, SELF-CARE Condition: Stable Departure-Patient Inst. Decision time for Depature: 13:37 Referrals: ANTHONY JUNG DO (PCP/Family) Primary Care Physician Patient Instructions: Percutaneous Endoscopic Gastrostomy (DC) FREEDOM HURLEY Mar 18, 2022 12:12
[2022-03-18] MEDS ORDERED: DIATRIZOATE MEGLUM/SODIUM 37% 120 ML (GASTROGRAFIN) NG ONE (13:15)
--- NOTE | 2022-03-18 13:34 | Diagnostic Imaging Report ---
INDICATION: Feeding tube placement check. COMPARISON: 03/07/2022. TECHNIQUE: Frontal and lateral radiographs of the abdomen are obtained after 30 mL of Gastrografin were instilled through the percutaneous gastrostomy catheter which was then flushed with water. FINDINGS: A percutaneous gastrostomy catheter is identified with the balloon overlying the left upper abdomen. The distal tip appears to be within the lumen of the stomach as contrast is identified within the stomach extending through the proximal small bowel. No abnormally dilated loops of bowel. No free air. The visualized lung bases are clear. No acute osseous abnormality. IMPRESSION: Percutaneous gastrostomy catheter is present with the distal tip within the lumen of the stomach. Dictated by: Dictated on workstation # [id number]
[2022-03-18 13:40] VITALS: BP 127/82
== END 2022-03-18 13:40 | disposition home or self-care (01) ==
LOC: EDUNIT# 11:53 → ER 11:55
DX: K94.23 Gastrostomy malfunction (principal); Z28.310 Unvaccinated for COVID-19
CPT/HCPCS: 49465

== ENCOUNTER 2022-04-18 17:27 | Emergency (ER) | payer MEDICARE, MEDICAID ==
[~2022-04-18] VITALS: Ht 165.1 cm; Wt 64.0 kg
--- NOTE | 2022-04-18 18:01 | ED GI ---
General Chief Complaint: Catheter/Drain/Tube Problems Stated Complaint: G TUBE REPLACE Nursing Triage Note: requested someone change his g tube for him. patient has own g tube with him. Source of Information: Patient Exam Limitations: No Limitations History of Present Illness Date Seen by Provider: Apr 18, 2022 Time Seen by Provider: 17:58 Initial Comments To ER with request of having his PEG tube changed. Has had a PEG tube in place for about 7 years due to achalasia. He recently ordered a very short "Monty button" version and would like to have this inserted. Timing/Duration: 1-2 Days Severity/Quality: Moderate Location: Epigastric Radiation: No Radiation Activities at Onset: None Allergies and Home Medications Allergies Coded Allergies: No Known Allergies (Verified Allergy, Unknown, 06/11/21) Patient Home Medication List Home Medication List Reviewed: Yes Review of Systems Review of Systems Constitutional: see HPI EENTM: No Symptoms Reported Respiratory: No Symptoms Reported Cardiovascular: No Symptoms Reported Gastrointestinal: No Symptoms Reported Genitourinary: No Symptoms Reported Musculoskeletal: no symptoms reported Skin: no symptoms reported Psychiatric/Neurological: No Symptoms Reported Endocrine: No Symptoms Reported Hematologic/Lymphatic: No Symptoms Reported Past Pvolaxw-Jjstam-Hvuhub Hx Patient Social History Tobacco Use?: Yes Tobacco type used: Cigarettes Smoking Status: Current Everyday Smoker Use of E-Cig and/or Vaping dev: No Substance use?: No Alcohol Use?: No Pt feels they are or have been: No Immunizations Up To Date First/Initial COVID19 Vaccinat: declined Second COVID19 Vaccination Evelio: declined Third COVID19 Vaccination Date: declined Past Medical History Surgery/Hospitalization HX: FEEDING TUBE "FOR 6.5 YEARS" POST ALCOHOLISM, INSOMNIA Surgeries: Yes Abdominal Respiratory: No Cardiac: No Neurological: No Genitourinary: No Gastrointestinal: Yes (Esophageal achalasia) Musculoskeletal: No Endocrine: No HEENT: No Cancer: No Psychosocial: Yes (Alcohol dependence and abuse) Family Medical History No Pertinent Family Hx Physical Exam Vital Signs Vital Signs - First Documented 04/18/22 17:36 Temp 36.0 Pulse 82 Resp 18 B/P (MAP) 146/83 (104) Pulse Ox 98 Capillary Refill : Height/Weight/BMI Height: '" Weight: lbs. oz. kg; 23.00 BMI Method: General Appearance: WD/WN, no apparent distress HEENT: PERRL/EOMI, normal ENT inspection Respiratory: no respiratory distress, no accessory muscle use Gastrointestinal: normal bowel sounds, soft, other (The existing 20 Danish gastric tube left upper quadrant was removed and the shorter Monty button that he has with him was replaced. No difficulties. This was then flushed.) Neurologic/Psychiatric: alert, normal mood/affect, oriented x 3 Skin: normal color, warm/dry Progress/Results/Core Measures Results/Orders Vital Signs/I&O 04/18/22 17:36 Temp 36.0 Pulse 82 Resp 18 B/P (MAP) 146/83 (104) Pulse Ox 98 Blood Pressure Mean: 104 Departure Impression Primary Impression: Encounter for feeding tube placement Disposition: 01 HOME, SELF-CARE Condition: Against Medical Advice Departure-Patient Inst. Decision time for Depature: 18:00 Referrals: ANTHONY JUNG DO (PCP/Family) Primary Care Physician Patient Instructions: NO INSTRUCTIONS GIVEN EDDA GARCIA APRN Apr 18, 2022 18:01
[2022-04-18 18:04] VITALS: BP 146/83
== END 2022-04-18 18:04 | disposition home or self-care (01) ==
LOC: EDUNIT# 17:27 → ER 17:28
DX: Z46.59 Encounter for fitting and adjustment of other gastrointestinal appliance and device (principal); F17.210 Nicotine dependence, cigarettes, uncomplicated; Z28.310 Unvaccinated for COVID-19
CPT/HCPCS: 99281

== ENCOUNTER 2022-09-23 15:43 | Emergency (ER) | payer MEDICARE, MEDICAID ==
[~2022-09-23] VITALS: Ht 175 cm; Wt 64.0 kg
[2022-09-23] MEDS ORDERED: NS IV 1000 ML 1,000 ML IV STA (15:55)
--- NOTE | 2022-09-23 16:15 | ED General ---
General Stated Complaint: INTOXICATED Source of Information: EMS Exam Limitations: Intoxication (BRADFORD MCGEE MD) History of Present Illness Date Seen by Provider: Sep 23, 2022 Time Seen by Provider: 15:45 Initial Comments Here by EMS with report of being found unresponsive on this road. EMS reports that he smells of alcohol and he is cool to the touch but otherwise has a's normal blood pressure and heart rate. Patient is known alcoholic. No reported injury. Patient does respond to verbal but is quite slurred in speech and otherwise history is not obtainable at this point. Abrasion noted to the top of the head. Patient does have history of feeding tube and alcohol use disorder and has been seen here before for similar per records reviewed. Timing/Duration: Other (Unknown) Severity: Moderate (BRADFORD MCGEE MD) Allergies and Home Medications Allergies Coded Allergies: No Known Allergies (Verified Allergy, Unknown, 06/11/21) Patient Home Medication List Home Medication List Reviewed: Yes (BRADFORD MCGEE MD) Review of Systems Review of Systems Constitutional: no symptoms reported Unable to obtain review of systems due to altered mental status from intoxication (BRADFORD MCGEE MD) Past Saxbiml-Ooicew-Nirsbz Hx Patient Social History Alcohol Use?: Yes (BRADFORD MCGEE MD) Immunizations Up To Date First/Initial COVID19 Vaccinat: declined Second COVID19 Vaccination Evelio: declined Third COVID19 Vaccination Date: declined (BRADFORD MCGEE MD) Past Medical History Surgery/Hospitalization HX: FEEDING TUBE "FOR 6.5 YEARS" POST ALCOHOLISM, INSOMNIA Surgeries: Yes Abdominal Respiratory: No Cardiac: No Neurological: No Genitourinary: No Gastrointestinal: Yes (Esophageal achalasia) Musculoskeletal: No Endocrine: No HEENT: No Cancer: No Psychosocial: Yes (Alcohol dependence and abuse) (BRADFORD MCGEE MD) Family Medical History Reviewed Nursing Family Hx (BRADFORD MCGEE MD) No Pertinent Family Hx (BRADFORD MCGEE MD) Physical Exam Vital Signs Vital Signs - First Documented 09/23/22 16:00 Temp 34.1 Pulse 60 Resp 16 B/P (MAP) 103/73 (83) Pulse Ox 96 O2 Delivery Room Air (HENRY WILKINSON MD) Vital Signs Capillary Refill : (BRADFORD MCGEE MD) Height, Weight, BMI Height: '" Weight: lbs. oz. kg; 23.00 BMI Method: General Appearance: Thin, Other (Intoxicated appearing) HEENT: PERRL/EOMI, Pharynx Normal Neck: Normal Inspection, Non Tender, Supple Respiratory: Lungs Clear, Normal Breath Sounds Cardiovascular: Regular Rate, Rhythm, No Murmur Gastrointestinal: Soft, Other (Feeding tube to abdomen) Back: Normal Inspection, No CVA Tenderness, No Vertebral Tenderness Extremity: Non Tender, No Pedal Edema Neurologic/Psychiatric: Other (Awakes to verbal slurs speech. Does follow some simple commands. He is redirectable but is a little agitated.) Skin: Cool, Other (Abrasion to the top of the head that appears new with very small abrasion to the forehead. No other obvious head injury noted.) (BRADFORD MCGEE MD) Progress/Results/Core Measures Suspected Sepsis SIRS Temperature: Pulse: Respiratory Rate: Laboratory Tests 09/23/22 17:23: White Blood Count 9.7 Blood Pressure / Mean: Laboratory Tests 09/23/22 17:23: Creatinine 0.71, Platelet Count 309, Total Bilirubin 0.1 (BRADFORD MCGEE MD) Results/Orders Lab Results Laboratory Tests Test 09/23/22 17:23 Range/Units White Blood Count 9.7 4.3-11.0 10^3/uL Red Blood Count 4.96 4.30-5.52 10^6/uL Hemoglobin 15.1 13.3-17.7 g/dL Hematocrit 46 40-54 % Mean Corpuscular Volume 93 80-99 fL Mean Corpuscular Hemoglobin 30 25-34 pg Mean Corpuscular Hemoglobin Concent 33 32-36 g/dL Red Cell Distribution Width 13.3 10.0-14.5 % Platelet Count 309 130-400 10^3/uL Mean Platelet Volume 9.7 9.0-12.2 fL Immature Granulocyte % (Auto) 0 % Neutrophils (%) (Auto) 62 42-75 % Lymphocytes (%) (Auto) 26 12-44 % Monocytes (%) (Auto) 8 0-12 % Eosinophils (%) (Auto) 3 0-10 % Basophils (%) (Auto) 1 0-10 % Neutrophils # (Auto) 6.0 1.8-7.8 10^3/uL Lymphocytes # (Auto) 2.5 1.0-4.0 10^3/uL Monocytes # (Auto) 0.8 0.0-1.0 10^3/uL Eosinophils # (Auto) 0.3 0.0-0.3 10^3/uL Basophils # (Auto) 0.1 0.0-0.1 10^3/uL Immature Granulocyte # (Auto) 0.0 0.0-0.1 10^3/uL Sodium Level 148 H 135-145 MMOL/L Potassium Level 2.9 L 3.6-5.0 MMOL/L Chloride Level 117 H 98-107 MMOL/L Carbon Dioxide Level 18 L 21-32 MMOL/L Anion Gap 13 5-14 MMOL/L Blood Urea Nitrogen 9 7-18 MG/DL Creatinine 0.71 0.60-1.30 MG/DL Estimat Glomerular Filtration Rate 121 BUN/Creatinine Ratio 13 Glucose Level 76 70-105 MG/DL Calcium Level 8.5 8.5-10.1 MG/DL Corrected Calcium 8.3 L 8.5-10.1 MG/DL Total Bilirubin 0.1 0.1-1.0 MG/DL Aspartate Amino Transf (AST/SGOT) 17 5-34 U/L Alanine Aminotransferase (ALT/SGPT) 15 0-55 U/L Alkaline Phosphatase 75 40-136 U/L Total Protein 7.0 6.4-8.2 GM/DL Albumin 4.2 3.2-4.5 GM/DL Salicylates Level < 5.0 L 5.0-20.0 MG/DL Acetaminophen Level < 10 L 10-30 UG/ML Serum Alcohol 355 *H <10 MG/DL (HENRY WILKINSON MD) Medications Given in ED (HENRY WILKINSON MD) Vital Signs/I&O 09/23/22 09/23/22 09/23/22 16:00 19:48 22:47 Temp 34.1 35.8 35.8 Pulse 60 51 68 Resp 16 18 20 B/P (MAP) 103/73 (83) 114/82 (93) 112/79 Pulse Ox 96 97 98 O2 Delivery Room Air Room Air Room Air 09/24/22 00:00 Intake Total 2050 ml Balance 2050 ml (HENRY WILKINSON MD) Vital Signs/I&O Capillary Refill : (BRADFORD MCGEE MD) Progress Note : Progress Note Seen and evaluated on arrival by EMS. Report by EMS given to me. Patient appears intoxicated with known history of intoxication and alcohol abuse per records review from previous visits here. We will establish IV and check labs as well as drug screen and give LR 1 L bolus warm fluid and give warm blankets. We will check CBC, CMP, alcohol, Tylenol, salicylate and drug screen as well as UA. We will check CT of the head due to abrasions noted and intoxication with altered mental status. Monitor patient. 1610: Patient is agitated and security is with patient currently. Law enforcement is also present due to safety concerns for ED staff. Monitor patient. Differential includes head injury, alcohol intoxication, other intoxication, electrolyte disturbance, dehydration. 1800: CT of the head shows no obvious bleed on my interpretation. Radiology report agrees. CBC is normal. CMP does show elevated sodium and chloride and potassium low at 2.9. We will initiate potassium replacement with KCl 10 mEq IV as well as repeat fluids with 1 L LR bolus. Alcohol noted to be greater than 350. Creatinine is normal. He is actually doing a little better now. Care has been transferred to Dr. Wilkinson pending metabolism to sobriety. (BRADFORD MCGEE MD) Progress Note #1: Time: 22:05 Progress Note I assumed care of this patient at shift change. He has been sleeping quietly. He had received potassium replacement. I went to check on him, and he was alert and conversational when I woke him. He stated he was experiencing neck pain. I explained to him that we needed to evaluate his neck since he possibly had injury. His head was previously scanned due to intoxication and abrasion on his forehead. While attempting to place the c-collar, patient sat up and was motioning threateningly at staff and yelling in a belligerent manner. He was yelling directly at me, leading in my face, and pointing in my face. He was yelling, "shut the fk up. You think you authority here...!" He was very aggressive and threatening. He would not back down from his behavior so I left the room. He would not allow a c-collar to be placed for further stabilization and evaluation. At this point, I discerned that I and staff were not safe in the room. I left the room and requested law enforcement be contacted. Progress Note #2: Progress Note Patient eventually left AGAINST MEDICAL ADVICE without obtaining CT of the neck. (HENRY WILKINSON MD) Diagnostic Imaging Diagonstic Imaging: CT Plain Films/CT/US/NM/MRI: head Comments [facility], [place] NAME: CHUCKIE KRISHNAN [facility] REC#: [id number] PT STATUS: REG ER : 1985 PHYSICIAN: BRADFORD MCGEE MD ADMIT DATE: 09/23/22/ER Signed Date of Exam:09/23/22 CT HEAD WO PROCEDURE: CT head without contrast. TECHNIQUE: Multiple contiguous axial images were obtained through the brain without the use of intravenous contrast. Auto Exposure Controls were utilized during the CT exam to meet ALARA standards for radiation dose reduction. INDICATION: Altered mental status. Found down. COMPARISON: None available. FINDINGS: CT of the head demonstrates no evidence of an acute intracranial abnormality. There is no evidence of intracranial hemorrhage. There is no extra-axial fluid collection, mass effect or shift. Sanchez and white matter differentiation appear preserved. There is no abnormal hypodensity within the basal ganglia. The ventricles are appropriate in size and configuration. There is no evidence of hydrocephalus. The basilar cisterns are patent. The posterior fossa is unremarkable. Mastoids and visualized paranasal sinuses appear clear. Orbital contents are unremarkable. There is no calvarial abnormality. IMPRESSION: 1. No CT evidence of an acute intracranial abnormality. Dictated by: Dictated on workstation # [id number] Dict: 09/23/221653 Trans: 09/23/221656 [facility] [id number] Interpreted by: WINIFRED VILLARREAL MD Electronically signed by: WINIFRED VILLARREAL MD 09/23/221656 (BRADFORD MCGEE MD) Departure Impression Primary Impression: Acute alcoholic intoxication Qualified Codes: F10.921 - Alcohol use, unspecified with intoxication delirium Additional Impressions: Alcohol abuse Aggressive behavior Hypokalemia Disposition: AGAINST MEDICAL ADVICE Condition: Against Medical Advice Departure-Patient Inst. Referrals: ANTHONY JUNG DO (PCP/Family) Primary Care Physician BRADFORD MCGEE MD Sep 23, 2022 16:15 HENRY WILKINSON MD Sep 23, 2022 22:09
--- NOTE | 2022-09-23 16:59 | Diagnostic Imaging Report ---
PROCEDURE: CT head without contrast. TECHNIQUE: Multiple contiguous axial images were obtained through the brain without the use of intravenous contrast. Auto Exposure Controls were utilized during the CT exam to meet ALARA standards for radiation dose reduction. INDICATION: Altered mental status. Found down. COMPARISON: None available. FINDINGS: CT of the head demonstrates no evidence of an acute intracranial abnormality. There is no evidence of intracranial hemorrhage. There is no extra-axial fluid collection, mass effect or shift. Sanchez and white matter differentiation appear preserved. There is no abnormal hypodensity within the basal ganglia. The ventricles are appropriate in size and configuration. There is no evidence of hydrocephalus. The basilar cisterns are patent. The posterior fossa is unremarkable. Mastoids and visualized paranasal sinuses appear clear. Orbital contents are unremarkable. There is no calvarial abnormality. IMPRESSION: 1. No CT evidence of an acute intracranial abnormality. Dictated by: Dictated on workstation # [id number]
[2022-09-23] MEDS ORDERED: ONDANSETRON 4 MG/2 ML (SDV) Z0FRAN IVP ONE (17:00)
[2022-09-23 17:37] LABS: BASOPHILS # (AUTO) 0.1 10^3/uL (0.0-0.1); BASOPHILS % (AUTO) 1 % (0-10); EOSINOPHILS # (AUTO) 0.3 10^3/uL (0.0-0.3); EOSINOPHILS % (AUTO) 3 % (0-10); HEMATOCRIT 46 % (40-54); HEMOGLOBIN 15.1 g/dL (13.3-17.7); LYMPHOCYTES # (AUTO) 2.5 10^3/uL (1.0-4.0); LYMPHOCYTES % (AUTO) 26 % (12-44); MEAN CORPUSCULAR HEMOGLOBIN 30 pg (25-34); MEAN CORPUSCULAR HGB CONC 33 g/dL (32-36); MEAN CORPUSCULAR VOLUME 93 fL (80-99); MEAN PLATELET VOLUME 9.7 fL (9.0-12.2); MONOCYTES # (AUTO) 0.8 10^3/uL (0.0-1.0); MONOCYTES % (AUTO) 8 % (0-12); NEUTROPHILS % (AUTO) 62 % (42-75); PLATELET COUNT 309 10^3/uL (130-400); WHITE BLOOD COUNT 9.7 10^3/uL (4.3-11.0)
[2022-09-23 17:50] LABS: ALBUMIN 4.2 GM/DL (3.2-4.5); CHLORIDE 117 MMOL/L (98-107); POTASSIUM 2.9 MMOL/L (3.6-5.0); SODIUM 148 MMOL/L (135-145)
[2022-09-23 17:52] LABS: CALCIUM 8.5 MG/DL (8.5-10.1)
[2022-09-23 17:53] LABS: GLUCOSE 76 MG/DL (70-105)
[2022-09-23 17:54] LABS: CARBON DIOXIDE 18 MMOL/L (21-32)
[2022-09-23 17:55] LABS: BILIRUBIN,TOTAL 0.1 MG/DL (0.1-1.0)
[2022-09-23 17:57] LABS: ALKALINE PHOSPHATASE 75 U/L (40-136); CREATININE SERUM 0.71 MG/DL (0.60-1.30); GFR ESTIMATED 121
[2022-09-23 17:58] LABS: BUN/CREATININE RATIO 13
[2022-09-23 17:59] LABS: SALICYLATE < 5.0 MG/DL (5.0-20.0)
[2022-09-23 18:00] LABS: ALANINE AMINOTRANSFERASE 15 U/L (0-55)
[2022-09-23 18:02] LABS: ACETAMINOPHEN < 10 UG/ML (10-30)
[2022-09-23] MEDS ORDERED: LACTATED RINGERS 1,000 ML IV STA (18:04)
[2022-09-23] MEDS ORDERED: POTASSIUM CL 10MEQ/50ML IVPB 50 ML IV ONE (18:15)
[2022-09-23 22:47] VITALS: BP 112/79
== END 2022-09-23 22:47 | disposition left against medical advice (07) ==
LOC: EDUNIT# 15:43 → ER 15:44
DX: F10.229 Alcohol dependence with intoxication, unspecified (principal); E87.6 Hypokalemia; Y90.8 Blood alcohol level of 240 mg/100 ml or more; Z28.310 Unvaccinated for COVID-19
CPT/HCPCS: 70450; 80053; 85025; 99283; G0480 ×3; 36415; 80320; 80329